=== PATIENT | female | born 1950 | race Caucasian/White ===

== ENCOUNTER 2020-02-28 18:21 | Inpatient (IN) | payer MEDICARE ==
[~2020-02-28] VITALS: Ht 160 cm; Wt 80.1 kg
--- NOTE | 2020-02-28 18:43 | NUR ---
PT BIB EMS FOR ELEVATED TROP OF 11.43. PT WENT TO [facility] FOR LLQ PAIN, PT HAS HX OF DIVERTICULITIS, AND SHE HAD THE ELEVATED TROP. PT WAS THEN TRANSPORTED HERE. PT RECEIVED 1 GM ROCEPHIN, 500MG FLAGYL, AND 25,000 UNIT BOLUS OF HEPARIN DAIRY BACTERIOLOGIST. PT DENIES CHEST PAIN AT THIS TIME. EKG HAS BEEN COMPLETED. PT RESTING IN [facility].
[2020-02-28] MEDS ORDERED: SODIUM CHLORIDE 0.9% 1,000ML IVBOLUS ONE (19:30)
[2020-02-28] MEDS ORDERED: SODIUM CHLORIDE FLUSH 10ML SYR IVF ONE (19:30)
[2020-02-28] MEDS ORDERED: PLEASE ENTER ALLERGIES MC SCH (19:30)
[2020-02-28 19:34] LABS: MEAN CORPUSCULAR HEMOGLOBIN 28.3 pg (27.0-34.8); MEAN CORPUSCULAR HGB CONC 32.7 g/dL (32.4-35.8); MEAN CORPUSCULAR VOLUME 86.6 fL (80-100); MEAN PLATELET VOLUME 6.9 fL (7.4-10.4); PLATELET COUNT 409 x10^3/uL (130-400)
[2020-02-28 19:45] LABS: ALBUMIN 3.8 g/dL (3.4-5.0); ANION GAP 8 mmol/L (5-15); CALCIUM 8.7 mg/dL (8.5-10.1); CHLORIDE 103 mmol/L (98-107); CREATININE 1.65 mg/dL (0.55-1.02)
[2020-02-28 19:49] LABS: MD YES
[2020-02-28 20:29] LABS: LYMPH#(MANUAL) 3.53 x10^3/uL (1-3.4); LYMPHS% (MANUAL) 19 % (22-44); MONOS#(MANUAL) 1.49 x10^3/uL (0.3-2.7); MONOS% (MANUAL) 8 % (2-9); REACTIVE LYMPHS # (MANUAL) 0.19 x10^3/uL (0-0); REACTIVE LYMPHS % (MANUAL) 1 % (0-0); SEG#(MANUAL) 13.39 x10^3/uL (1.8-6.8); SEGS% (MANUAL) 72 % (42-75)
[2020-02-28 20:35] VITALS: BP 91/56
[2020-02-28 20:41] LABS: <PLATELET ESTIMATE> INCREASED; <PLT MORPHOLOGY> NORMAL PLT MORPH; <RBC MORPHOLOGY> NORMAL
[2020-02-28] MEDS ORDERED: TIZA4TAB9 PO (21:24)
[2020-02-28] MEDS ORDERED: GABA600T7 PO (21:24)
[2020-02-28] MEDS ORDERED: ACYC-114 PO (21:26)
[2020-02-28] MEDS ORDERED: morphine SULFATE 10 MG/ML, 1ML IVPush PRN (21:30)
[2020-02-28] MEDS ORDERED: ACETAMINOPHEN 325 MG TABLET PO PRN (21:30)
[2020-02-28] MEDS ORDERED: PHARMACY MAY ADJ FOR RENAL FX MC PRN (21:30)
[2020-02-28] MEDS ORDERED: HEPARIN 5,000 UNITS/ML, 1ML IV PRN (21:30)
[2020-02-28] MEDS ORDERED: HEPARIN 5,000 UNITS/ML, 1ML IV ONE (21:30)
[2020-02-28] MEDS ORDERED: HEPARIN 25,000 UNITS/250ML PMX 250 ML IV PRN (21:30)
[2020-02-28] MEDS ORDERED: ONDANSETRON 2MG/ML, 2ML IVPush PRN (21:30)
[2020-02-28] MEDS ORDERED: TRAZODONE 50MG TABLET PO PRN (21:30)
[2020-02-28] MEDS: LACTATED RINGERS 1,000 ML IV SCH (21:39)
[2020-02-28] MEDS: ACYCLOVIR 400 MG TABLET PO SCH (21:39)
[2020-02-28] MEDS ORDERED: GABAPENTIN 300 MG CAPSULE ONE (22:50)
[2020-02-28] MEDS ORDERED: TIZANIDINE 4MG TABLET ONE (22:50)
[2020-02-28] MEDS: GABAPENTIN 300 MG CAPSULE PO SCH (23:00)
[2020-02-28] MEDS: TIZANIDINE 4MG TABLET PO SCH (23:00)
[2020-02-29 01:50] VITALS: BP 98/62
[2020-02-29] MEDS ORDERED: LEVO100T PO (02:09)
[2020-02-29] MEDS ORDERED: POTASSIUM CHLORIDE 40 MEQ in SODIUM CHLORIDE 0.9% 500 ML IV ONE (03:30)
[2020-02-29] MEDS: ASPIRIN 81 MG TABLET EC PO SCH (04:06)
[2020-02-29 07:00] LABS: MEAN CORPUSCULAR HEMOGLOBIN 28.7 pg (27.0-34.8); MEAN CORPUSCULAR HGB CONC 32.6 g/dL (32.4-35.8); MEAN CORPUSCULAR VOLUME 87.9 fL (80-100); MEAN PLATELET VOLUME 6.7 fL (7.4-10.4); PLATELET COUNT 339 x10^3/uL (130-400); RED BLOOD COUNT 4.58 x10^6/uL (3.82-5.3); RED CELL DISTRIBUTION WIDTH 14.9 % (9.6-15.2)
[2020-02-29 07:06] LABS: CHLORIDE 110 mmol/L (98-107)
[2020-02-29 07:15] VITALS: BP 98/62
[2020-02-29] MEDS: LACTATED RINGERS 1,000 ML IV SCH ×2 (07:17→20:40)
[2020-02-29 07:18] LABS: ANION GAP 8 mmol/L (5-15); CALCIUM 8.2 mg/dL (8.5-10.1); CHOL/HDL RATIO 3.9; CHOLESTEROL, TOTAL 139 mg/dL (140-239); CREATININE 0.75 mg/dL (0.55-1.02); HDL CHOL % 26 % (28-40); HDL CHOLESTEROL (DIRECT) 36 mg/dL (40-60); LDL CHOLESTEROL,CALCULATED 64 mg/dL (54-169); LDL/HDL RATIO 1.8 (0.5-3.0); TRIGLYCERIDES 197 mg/dL (50-200); VLDL CHOLESTEROL 39 mg/dL (0-25)
[2020-02-29 07:20] LABS: BASOPHILS # (AUTO) 0.03 x10^3/uL (0-0.1); BASOPHILS % (AUTO) 0 % (0-1); EOSINOPHILS % (AUTO) 1 % (1-7); LYMPHOCYTES # (AUTO) 2.39 x10^3/uL (1-3.4); LYMPHOCYTES % (AUTO) 22 % (22-44); MD SCAN; MONOCYTES # (AUTO) 1.13 x10^3/uL (0.2-0.8); MONOCYTES % (AUTO) 10 % (2-9); NEUTROPHILS # (AUTO) 7.49 x10^3/uL (1.8-6.8); NEUTROPHILS % (AUTO) 67 % (42-75)
[2020-02-29] MEDS: ACYCLOVIR 400 MG TABLET PO SCH ×2 (08:06→20:40)
[2020-02-29] MEDS: GABAPENTIN 300 MG CAPSULE PO SCH ×2 (08:06→20:40)
[2020-02-29] MEDS: LEVOTHYROXINE 100 MCG TABLET PO SCH (08:06)
[2020-02-29 08:53] LABS: MICROSCOPIC NOT IND
[2020-02-29] MEDS ORDERED: GABAPENTIN 300 MG CAPSULE PO SCH (09:00)
[2020-02-29] MEDS ORDERED: SODIUM CHLORIDE 0.9% 1,000 ML IV SCH ×2 (11:00→14:08)
[2020-02-29 12:35] VITALS: BP 95/58
[2020-02-29] MEDS ORDERED: VERAPAMIL 2.5 MG/ML, 2ML ONE (13:35)
[2020-02-29] MEDS ORDERED: LIDOCAINE-MPF 1%, 5ML ONE (13:35)
[2020-02-29] MEDS ORDERED: TICAGRELOR 90 MG TABLET ONE (13:35)
[2020-02-29] MEDS ORDERED: FENTANYL PF 100 MCG/2ML ONE (13:35)
[2020-02-29] MEDS ORDERED: MIDAZOLAM 1 MG/ML, 5ML ONE (13:35)
[2020-02-29] MEDS ORDERED: BIVALIRUDIN 250 MG ONE (13:35)
[2020-02-29] MEDS ORDERED: HEPARIN 1,000 UNITS/ML, 10ML ONE (13:36)
[2020-02-29 19:49] VITALS: BP 99/60
[2020-02-29] MEDS: TIZANIDINE 4MG TABLET PO SCH (20:40)
[2020-02-29] MEDS ORDERED: TIZANIDINE 4MG TABLET PO SCH (21:00)
[2020-03-01 02:18] VITALS: BP 103/57
[2020-03-01 05:19] LABS: ANION GAP 5 mmol/L (5-15); BASOPHILS # (AUTO) 0.02 x10^3/uL (0-0.1); BASOPHILS % (AUTO) 0 % (0-1); CALCIUM 8.3 mg/dL (8.5-10.1); CHLORIDE 111 mmol/L (98-107); EOSINOPHILS # (AUTO) 0.21 x10^3/uL (0-0.4); EOSINOPHILS % (AUTO) 3 % (1-7); LYMPHOCYTES % (AUTO) 30 % (22-44); MD NO; MEAN CORPUSCULAR HEMOGLOBIN 28.2 pg (27.0-34.8); MEAN CORPUSCULAR HGB CONC 31.9 g/dL (32.4-35.8); MEAN CORPUSCULAR VOLUME 88.2 fL (80-100); MEAN PLATELET VOLUME 7.1 fL (7.4-10.4); MONOCYTES # (AUTO) 0.88 x10^3/uL (0.2-0.8); MONOCYTES % (AUTO) 11 % (2-9); NEUTROPHILS # (AUTO) 4.77 x10^3/uL (1.8-6.8); NEUTROPHILS % (AUTO) 57 % (42-75); PLATELET COUNT 274 x10^3/uL (130-400); RED BLOOD COUNT 4.27 x10^6/uL (3.82-5.3); RED CELL DISTRIBUTION WIDTH 15.1 % (9.6-15.2)
[2020-03-01] MEDS: ASPIRIN 81 MG TABLET EC PO SCH (05:47)
[2020-03-01] MEDS: LEVOTHYROXINE 100 MCG TABLET PO SCH (05:48)
[2020-03-01 07:07] VITALS: BP 97/55
[2020-03-01] MEDS: GABAPENTIN 300 MG CAPSULE PO SCH (09:16)
[2020-03-01] MEDS: ACYCLOVIR 400 MG TABLET PO SCH (09:16)
[2020-03-01] MEDS ORDERED: ASPI81TA45 PO (13:52)
[2020-03-01] MEDS ORDERED: ATOR40TA78 PO (13:55)
[2020-03-01] MEDS ORDERED: ATORVASTATIN 40 MG TABLET PO SCH (21:00)
[2021-02-27] MEDS ORDERED: GABAPENTIN 300 MG CAPSULE PO SCH ×2 (21:30→22:00)
[2021-02-27] MEDS ORDERED: TIZANIDINE 4MG TABLET PO SCH ×2 (21:30→22:00)
== END 2020-03-01 15:05 | disposition home or self-care (01) | DRG 280 ==
LOC: ED 19:25 → EDIP 19:26 → 5SO 20:14 → DCLOUNGE 03-01 14:57
PROVIDERS: ADMIT Family Medicine; ATTEND Family Medicine
PROC: 4A023N7 Measurement of Cardiac Sampling and Pressure, Left Heart, Percutaneous Approach (ICD-10-PCS; principal; 2020-02-29)
PROC: B2111ZZ Fluoroscopy of Multiple Coronary Arteries using Low Osmolar Contrast (ICD-10-PCS; 2020-02-29)
PROC: B2151ZZ Fluoroscopy of Left Heart using Low Osmolar Contrast (ICD-10-PCS; 2020-02-29)
DX: I21.4 Non-ST elevation (NSTEMI) myocardial infarction (principal); N17.0 Acute kidney failure with tubular necrosis; K57.92 Diverticulitis of intestine, part unspecified, without perforation or abscess without bleeding; D72.829 Elevated white blood cell count, unspecified; G89.29 Other chronic pain; M54.9 Dorsalgia, unspecified; M19.90 Unspecified osteoarthritis, unspecified site; M81.0 Age-related osteoporosis without current pathological fracture; E78.5 Hyperlipidemia, unspecified; I95.9 Hypotension, unspecified; E87.6 Hypokalemia; E21.3 Hyperparathyroidism, unspecified; E86.0 Dehydration; Z90.49 Acquired absence of other specified parts of digestive tract; Z88.2 Allergy status to sulfonamides; Z88.7 Allergy status to serum and vaccine; Z82.49 Family history of ischemic heart disease and other diseases of the circulatory system; Z90.710 Acquired absence of both cervix and uterus; Z80.3 Family history of malignant neoplasm of breast
CPT/HCPCS: 36415; 80048; 80061; 81003; 82040; 83605; 83735; 83880; 84100; 84145; 84484; 85025; 85379; 85520; 93005; 93306; 93458; 99156; C1769; C1894; G0378; J0583; J1644; J2250; J3010; J3480; J7030; J7040; J7120; Q9967